=== PATIENT | female | born 1945 | race Caucasian/White ===

== ENCOUNTER 2023-01-10 18:22 | Inpatient (IN) | payer MEDICARE, OTHER ==
[~2023-01-10] VITALS: Ht 157.5 cm; Wt 88.2 kg
[2023-01-10] MEDS ORDERED: IV NS 0.9% 1,000 ML BAG IV ONE (20:00)
[2023-01-10 20:33] LABS: BASOPHILS % (AUTO) 0.2 % (0.0-2.0); EOSINOPHILS % (AUTO) 0.3 % (0.0-6.0); HEMATOCRIT 41 % (33-45); HEMOGLOBIN 13.1 g/dL (11.5-14.8); LYMPHOCYTES # (AUTO) 1.2 K/uL (0.8-4.8); LYMPHOCYTES % (AUTO) 9.5 % (20.0-44.0); MEAN CORPUSCULAR HEMOGLOBIN 27 PG (26.0-33.0); MEAN CORPUSCULAR HGB CONC 32 g/dl (31.0-36.0); MEAN CORPUSCULAR VOLUME 84 fL (82-100); MONOCYTES # (AUTO) 0.7 K/uL (0.1-1.30); MONOCYTES % (AUTO) 5.8 % (2.0-12.0); NEUTROPHILS # (AUTO) 10.5 K/uL (1.8-8.9); NEUTROPHILS % (AUTO) 84.2 % (43.0-81.0); PLATELET COUNT (AUTO) 238 K/uL (150-450); RED BLOOD CELL COUNT(AUTO) 4.87 MIL/uL (4.0-5.2); RED CELL DISTRIBUTION WIDTH 16.1 % (11.5-15.0); WHITE BLOOD COUNT (AUTO) 12.4 K/uL (4.3-11.0)
[2023-01-10 20:41] LABS: CALCIUM, SERUM 9.1 mg/dL (8.5-10.1); CARBON DIOXIDE 28 mmol/L (21-32); CHLORIDE 102 mmol/L (98-107); CREATININE 1.1 mg/dL (0.6-1.3); GLUCOSE 134 mg/dL (74-106); POTASSIUM 3.8 mmol/L (3.5-5.1); SODIUM SERUM 141 mmol/L (136-145); UREA NITROGEN, BLOOD 18 mg/dL (7-18)
[2023-01-10 20:47] LABS: ALANINE AMINOTRANSFERASE 19 U/L (12-78); ALBUMIN 3.5 g/dL (3.4-5.0); ALKALINE PHOSPHATASE 94 U/L (46-116); ASPARTATE AMINOTRANSFERASE 68 U/L (15-37); BILIRUBIN,DIRECT 0.1 mg/dL (0.0-0.2); BILIRUBIN,TOTAL 0.5 mg/dL (0.2-1.0); TOTAL PROTEIN, SERUM 7.2 g/dL (6.4-8.2)
[2023-01-11] MEDS ORDERED: Z GUARD REMEDY 4 OZ OINT TP PRN (01:00)
[2023-01-11] MEDS ORDERED: ACETAMINOPHEN 325 MG TABLET PO PRN (01:00)
[2023-01-11] MEDS ORDERED: MAGNESIUM HYDROXIDE 30 ML UDC PO PRN (01:00)
[2023-01-11] MEDS ORDERED: ZOLPIDEM TARTRATE 5 MG TABLET PO PRN (01:00)
[2023-01-11] MEDS ORDERED: MAG HYDROX/AL HYDROX/SIMETH 30 ML UDC PO PRN (01:00)
[2023-01-11] MEDS ORDERED: ONDANSETRON HCL/PF 4 MG/2 ML VIAL IVP PRN (01:00)
[2023-01-11] MEDS ORDERED: CEFTRIAXONE 1GM BAG (ER ONLY) 50 ML IV ONE ×2 (01:26→21:14)
[2023-01-11] MEDS: CEFTRIAXONE 1 G in IV D5W 50 ML IV SCH ×2 (01:31→21:18)
[2023-01-11] MEDS: IV NS 0.9% 1,000 ML IV PRN ×2 (01:32→15:28)
[2023-01-11] MEDS ORDERED: ENTA200T30 PO (08:28)
[2023-01-11] MEDS ORDERED: LABE200T5 PO (08:28)
[2023-01-11] MEDS ORDERED: CARB1TAB21 PO (08:28)
[2023-01-11] MEDS ORDERED: LORA-259 PO (08:28)
[2023-01-11] MEDS ORDERED: ASCO100058 PO (08:28)
[2023-01-11] MEDS ORDERED: CHOL500062 PO (08:28)
[2023-01-11] MEDS ORDERED: MAGN200T5 PO (08:28)
[2023-01-11] MEDS ORDERED: VORT20TA PO (08:28)
[2023-01-11] MEDS ORDERED: FERR325T23 PO (08:28)
[2023-01-11] MEDS ORDERED: PANT40TA2 PO (08:28)
[2023-01-11 08:40] VITALS: BP 173/104; TEMP 98.3; O2SAT 96
[2023-01-11 09:50] VITALS: BP 133/80; TEMP 98.3; O2SAT 96
[2023-01-11] MEDS: CARBIDOPA/LEVODOPA 25/100 MG 1 UDTAB PO SCH ×2 (13:19→17:23)
[2023-01-11] MEDS: ENTACAPONE 200 MG TABLET PO SCH ×2 (13:19→17:23)
[2023-01-11] MEDS ORDERED: CARBIDOPA/LEVODOPA 25/100 MG 1 UDTAB PO SCH (13:30)
[2023-01-11] MEDS ORDERED: LABETALOL HCL (100MG) 100 MG TABLET PO PRN (13:30)
[2023-01-11 16:00] VITALS: BP 139/67; TEMP 97.9; O2SAT 94
[2023-01-11 16:48] VITALS: BP 139/67; TEMP 97.9; O2SAT 94
[2023-01-11] MEDS: LORAZEPAM 1 MG TABLET PO SCH (17:23)
[2023-01-11 20:00] VITALS: BP 137/76; TEMP 98.4; O2SAT 94
[2023-01-11] MEDS: ENOXAPARIN SODIUM 40 MG/0.4 ML DISP.SYRIN SQ SCH (21:14)
[2023-01-11 23:57] LABS: APPEARANCE,URINE CLEAR (CLEAR); BILIRUBIN,URINE NEGATIVE (NEGATIVE); BLOOD, URINE NEGATIVE Ery/uL (NEGATIVE); COLOR,URINE YELLOW (YELLOW); KETONES,URINE NEGATIVE (NEGATIVE); LEUKOCYTE ESTERASE ,URINE 1+ (NEGATIVE); NITRITE, URINE POSITIVE (NEGATIVE); PROTEIN,URINE NEGATIVE (NEGATIVE); UGLUCOSE NEGATIVE (NEGATIVE); UROBILINOGEN,URINE 0.2 EU/dL (0.2)
[2023-01-12] LABS: ADD URINE CULTURE YES; BACTERIA,URINE Moderate /HPF (None Seen); RBC,URINE 0-2 /HPF (0-2); SQUAMOUS EPITHELIAL CELL,UR Rare /HPF (None Seen)
[2023-01-12 04:00] VITALS: BP 104/79; TEMP 98.1; O2SAT 95
[2023-01-12] MEDS: IV NS 0.9% 1,000 ML IV PRN ×2 (05:01→23:28)
[2023-01-12 06:51] LABS: CREATININE 0.6 mg/dL (0.6-1.3); MAGNESIUM 2.2 mg/dL (1.8-2.4); PHOSPHORUS 3.3 mg/dL (2.5-4.9); POTASSIUM 3.5 mmol/L (3.5-5.1)
[2023-01-12 06:56] LABS: BASOPHILS % (AUTO) 0.2 % (0.0-2.0); EOSINOPHILS # (AUTO) 0.2 K/uL (0.0-0.7); EOSINOPHILS % (AUTO) 2.5 % (0.0-6.0); HEMATOCRIT 42 % (33-45); HEMOGLOBIN 13.3 g/dL (11.5-14.8); LYMPHOCYTES # (AUTO) 1.4 K/uL (0.8-4.8); LYMPHOCYTES % (AUTO) 17.7 % (20.0-44.0); MEAN CORPUSCULAR HEMOGLOBIN 27 PG (26.0-33.0); MEAN CORPUSCULAR HGB CONC 32 g/dl (31.0-36.0); MEAN CORPUSCULAR VOLUME 85 fL (82-100); MONOCYTES # (AUTO) 0.5 K/uL (0.1-1.30); MONOCYTES % (AUTO) 6.8 % (2.0-12.0); NEUTROPHILS # (AUTO) 5.8 K/uL (1.8-8.9); NEUTROPHILS % (AUTO) 72.8 % (43.0-81.0); PLATELET COUNT (AUTO) 230 K/uL (150-450); RED CELL DISTRIBUTION WIDTH 16.1 % (11.5-15.0); WHITE BLOOD COUNT (AUTO) 7.9 K/uL (4.3-11.0)
[2023-01-12 07:00] VITALS: BP 157/74; TEMP 98.2; O2SAT 94
[2023-01-12] MEDS: PANTOPRAZOLE 40 MG TABLET.DR PO SCH (07:58)
[2023-01-12] MEDS: LORAZEPAM 1 MG TABLET PO SCH ×2 (09:00→17:30)
[2023-01-12] MEDS: FERROUS SULFATE (325 MG) 325 MG/TAB TABLET PO SCH (09:00)
[2023-01-12] MEDS: CARBIDOPA/LEVODOPA 25/100 MG 1 UDTAB PO SCH ×3 (09:01→17:30)
[2023-01-12] MEDS: ENTACAPONE 200 MG TABLET PO SCH ×3 (09:02→17:30)
[2023-01-12] MEDS ORDERED: CEPH250C PO (11:25)
[2023-01-12] MEDS: CEFTRIAXONE 1 G in IV D5W 50 ML IV SCH (20:29)
[2023-01-12] MEDS: ENOXAPARIN SODIUM 40 MG/0.4 ML DISP.SYRIN SQ SCH (20:30)
[2023-01-12 20:32] VITALS: BP 130/80; TEMP 97.8; O2SAT 92
[2023-01-13] MEDS: PANTOPRAZOLE 40 MG TABLET.DR PO SCH (07:56)
[2023-01-13 08:00] VITALS: BP 160/113; TEMP 97.6; O2SAT 96
[2023-01-13] MEDS: FERROUS SULFATE (325 MG) 325 MG/TAB TABLET PO SCH (08:15)
[2023-01-13] MEDS: ENTACAPONE 200 MG TABLET PO SCH ×3 (08:16→16:08)
[2023-01-13] MEDS: LORAZEPAM 1 MG TABLET PO SCH ×2 (08:16→16:09)
[2023-01-13] MEDS: CARBIDOPA/LEVODOPA 25/100 MG 1 UDTAB PO SCH ×3 (08:16→16:09)
[2023-01-13 10:24] VITALS: BP 155/73
[2023-01-13 16:00] VITALS: BP 135/74; TEMP 98.4; O2SAT 94
[2023-01-13] MEDS: ENSURE ENLIVE CHOC 237 ML CAN PO SCH (16:10)
[2023-01-13 20:00] VITALS: BP 128/66; TEMP 98; TEMP 98.3; O2SAT 93
[2023-01-13] MEDS: CEFTRIAXONE 1 G in IV D5W 50 ML IV SCH (21:08)
[2023-01-13] MEDS: IV NS 0.9% 1,000 ML IV PRN (21:09)
[2023-01-13] MEDS: ENOXAPARIN SODIUM 40 MG/0.4 ML DISP.SYRIN SQ SCH (21:14)
[2023-01-14 06:30] LABS: BASOPHILS % (AUTO) 0.2 % (0.0-2.0); EOSINOPHILS # (AUTO) 0.3 K/uL (0.0-0.7); EOSINOPHILS % (AUTO) 3.6 % (0.0-6.0); HEMATOCRIT 38 % (33-45); HEMOGLOBIN 12.5 g/dL (11.5-14.8); LYMPHOCYTES # (AUTO) 1.4 K/uL (0.8-4.8); LYMPHOCYTES % (AUTO) 20.7 % (20.0-44.0); MEAN CORPUSCULAR HEMOGLOBIN 28 PG (26.0-33.0); MEAN CORPUSCULAR HGB CONC 33 g/dl (31.0-36.0); MEAN CORPUSCULAR VOLUME 84 fL (82-100); MONOCYTES # (AUTO) 0.5 K/uL (0.1-1.30); MONOCYTES % (AUTO) 7.2 % (2.0-12.0); NEUTROPHILS # (AUTO) 4.7 K/uL (1.8-8.9); NEUTROPHILS % (AUTO) 68.3 % (43.0-81.0); PLATELET COUNT (AUTO) 223 K/uL (150-450); RED BLOOD CELL COUNT(AUTO) 4.52 MIL/uL (4.0-5.2); RED CELL DISTRIBUTION WIDTH 15.8 % (11.5-15.0); WHITE BLOOD COUNT (AUTO) 6.9 K/uL (4.3-11.0)
[2023-01-14 06:43] LABS: CALCIUM, SERUM 9.2 mg/dL (8.5-10.1); CARBON DIOXIDE 25 mmol/L (21-32); CHLORIDE 107 mmol/L (98-107); CREATININE 0.8 mg/dL (0.6-1.3); GLUCOSE 137 mg/dL (74-106); MAGNESIUM 2.1 mg/dL (1.8-2.4); POTASSIUM 3.6 mmol/L (3.5-5.1); SODIUM SERUM 143 mmol/L (136-145); UREA NITROGEN, BLOOD 13 mg/dL (7-18)
[2023-01-14] MEDS: PANTOPRAZOLE 40 MG TABLET.DR PO SCH (07:43)
[2023-01-14] MEDS: ENSURE ENLIVE CHOC 237 ML CAN PO SCH (07:43)
[2023-01-14 08:00] VITALS: BP 154/92; TEMP 97.9; O2SAT 96
[2023-01-14] MEDS: ENTACAPONE 200 MG TABLET PO SCH (08:34)
[2023-01-14] MEDS: CARBIDOPA/LEVODOPA 25/100 MG 1 UDTAB PO SCH (08:34)
[2023-01-14] MEDS: LORAZEPAM 1 MG TABLET PO SCH (08:34)
[2023-01-14] MEDS: FERROUS SULFATE (325 MG) 325 MG/TAB TABLET PO SCH (08:34)
== END 2023-01-14 12:30 | DRG 690 ==
LOC: ER 18:25 → TELE 01-11 00:37 → MED 01-11 01:20
PROVIDERS: ADMIT Nurse Practitioner Acute Care; ATTEND Internal Medicine
DX: N39.0 Urinary tract infection, site not specified (principal); G20 Parkinson's disease; E66.01 Morbid (severe) obesity due to excess calories; Z68.35 Body mass index [BMI] 35.0-35.9, adult; I10 Essential (primary) hypertension; Z88.0 Allergy status to penicillin; Z20.822 Contact with and (suspected) exposure to COVID-19; R53.1 Weakness; D72.829 Elevated white blood cell count, unspecified
CPT/HCPCS: 36415; 70450-TC; 71045-TC; 80048-TC; 80061-TC; 80076-TC; 81001; 82962-TC; 83735-TC; 84100-TC; 84484-TC; 85025-TC; 87086-TC; 97110-TC; 97116-TC; 97530-TC; A4223; G0378; J0696; J1650; J7030; J7060